=== PATIENT | female | born 1995 | race Caucasian/White ===

== ENCOUNTER 2017-02-22 18:37 | Emergency (ER) | payer MEDICAID, OTHER ==
[~2017-02-22 18:37] MED LIST: ANTIDEPRESSANT; ASACOL400 MG; BENTYL20 M1 PO; BUSPIRONE HCL30 M1 PO; CATAPRES0.1 MG PO; CLONIDINE HCL0.1 MG PO; COMPAZINE10 MG PO; FOCALIN XR20 MG; LEXAPRO10 MG; MULTIVITAMIN1 CAP; OMEPRAZOLE20 MG; PREVACID15 MG; PRILOSEC20 MG; PROTONIX40 M1 PO; RANITIDINE HCL75 M1 PO; SEROQUEL100 M2 PO; SEROQUEL100 MG; STRATTERA40 MG; STRATTERA60 MG; STRATTERA80 MG; TYLENOL325 M2 PO; ZANTAC150 M1 PO; ZOFRAN ODT4 MG/UDTAB PO; ZOFRAN4 M2 PO
[2017-05-31] MEDS ORDERED: CYCLOBENZAPRINE5 M1 PO (19:55)
== END 2017-02-22 20:00 ==
LOC: EDMED 18:37
DX: S63.501A Unspecified sprain of right wrist, initial encounter (principal); Z90.49 Acquired absence of other specified parts of digestive tract; Z88.5 Allergy status to narcotic agent; W17.89XA Other fall from one level to another, initial encounter